=== PATIENT | male | born 1955 | race Caucasian/White ===

== ENCOUNTER 2021-03-06 14:03 | Outpatient (CLI) | payer MEDICARE, SELFPAY ==
--- NOTE | ~2021-03-06 | XR_ITS ---
EXAMINATION: XR knee LT 3V DATE: 03/06/2021 14:47 INDICATION: Left knee pain. TECHNIQUE: 3 views of left knee were obtained. COMPARISON: None. FINDINGS: Bone alignment is normal. No fracture. There is mild osteoarthritis of patellofemoral and m edial compartments characterized by tiny marginal osteophytes. No joint space narrowing. There is cho ndrocalcinosis of medial meniscus. There is a large knee joint effusion. IMPRESSION: 1. Mild left knee osteoarthritis. 2. Large left knee joint effusion. Reviewed, dictated and finalized at location A.
== END 2021-03-06 14:04 | disposition home or self-care (01) ==
PROVIDERS: PCP Internal Medicine; Visit Provider Nurse Practitioner Family
DX: M25.562 Pain in left knee (principal); M17.12 Unilateral primary osteoarthritis, left knee; M25.462 Effusion, left knee
CPT/HCPCS: 73562

== ENCOUNTER 2021-03-15 07:03 | Outpatient (CLI) | payer MEDICARE, SELFPAY ==
--- NOTE | ~2021-03-15 | MR_ITS ---
EXAMINATION: MR knee LT wo con DATE: 03/15/2021 08:42 INDICATION: Left knee pain 2 weeks post fall with hyperflexion injury. TECHNIQUE: Magnetic resonance imaging (MRI) of the left knee was performed without intravenous contra st. Sequences included coronal PD-weighted FSE, coronal PD-weighted FS FSE, sagittal T2-weighted FSE , sagittal PD-weighted FS FSE and axial PD weighted fat saturated FSE. COMPARISON: None. FINDINGS: Medial compartment: Likely complex medial meniscal tear extending from the body into the posterior horn. Partial-thicknes s chondral ulceration involving less than 50% the cartilage thickness at the lateral margin of the la teral tibial plateau and anterior weightbearing medial femoral condyle. Lateral compartment: Lateral meniscus is normal. Tarsal thickness chondral fissuring along the posterior margin of the lat eral tibial plateau. Patellofemoral compartment: Deep chondral fissuring along the medial margin of the medial patellar facet as well as at the cephal ad aspect of the more lateral side of the medial patellar facet, the latter with tiny focus of underl xin subarticular edema. Shallow chondral fissuring at the lateral tibial plateau. Partial thickness chondral ulceration and deep fissuring with underlying cortical irregularity and tiny subarticular cy st at the inferior aspect of the medial trochlea. Ligaments and tendons: Complete tear of the anterior cruciate ligament. Posterior cruciate ligament is normal. Mild edema al jesús the deep and superficial margin of the otherwise normal-appearing proximal medial collateral liga ment which could be due to low-grade sprain or reactive edema related to the adjacent meniscal tear. Mild increased thickening and increased signal of less than fluid intensity at the femoral attachment of the fibular collateral ligament with mild surrounding edema consistent with low to moderate grade sprain. Mild patellar tendinopathy with large enthesopathic ossicle and associated enthesophyte at t he anterior tibial tuberosity insertion of the distal tendon. Tiny enthesophytes at the patellar inse rtion of the distal quadriceps tendon where there is only minimal tendinopathy. Mild semimembranosus tendinopathy. The remaining visualized medial and lateral hamstring tendons as well as the iliotibial band are normal. Fluid: Moderate-sized left knee joint effusion. Bandlike filling defect extending across the suprapatellar p ouch caudal to a suprapatellar plical band which could represent a small amount of residual clot rela alfonzo to prior post rheumatic hemarthrosis. No loose osteochondral bodies identified. Osseous/other: Prominent marrow edema surrounding a linear subarticular impaction fracture line which extends human capital analyst iorly from the lateral sulcus of the lateral aspect of the lateral femoral condyle into the lateral a spect of the anterior weightbearing lateral femoral condyle. Additional marrow edema surrounding a co rresponding subarticular impaction fracture line along the posterior rim of the lateral tibial platea u. Otherwise normal marrow signal. No pathologic marrow replacing process. IMPRESSION: 1. Moderate-sized left knee joint effusion and subarticular impaction fractures at the lateral margin of the lateral femoral condyle and the posterior rim of the lateral tibial plateau consistent with a n anterior tibial subluxation injury with associated complete tear of the anterior cruciate ligament. 2. Low to moderate grade sprain of the proximal fibular collateral ligament and possible low-grade sp rain of the medial collateral ligament. 3. Complex tear of the body and posterior horn of the medial meniscus. Reviewed, dictated and finalized at location A. IMPRESSION: 1. Moderate-sized left kne
== END 2021-03-15 07:04 | disposition home or self-care (01) ==
LOC: CHSIMG 07:05
PROVIDERS: PCP Internal Medicine; Visit Provider Internal Medicine
DX: M25.562 Pain in left knee (principal)
CPT/HCPCS: 73721

== ENCOUNTER 2021-09-07 00:27 | Day surgery (SDC) | payer MEDICARE, SELFPAY ==
[2021-08-24 14:52] VITALS: BMI 29.6
--- NOTE | 2021-09-07 06:35 | WPDANESEPPF ---
Anes - Initial Pre Proc Eval Procedure: Operation Date: 09/07/21 09:30 Proposed Procedures p Screening Colonoscopy - Ross An DO Date/Time: 09/07/21 06:35 Surgeon: Ross An DO Pre Op Diagnosis: neoplasm screening Patient Data Age: 66 Gender: M Height: 1.8 m Weight: 96.3 kg Allergies Allergy/AdvReac Type Severity Reaction Status Date / Time No Known Allergies Allergy Verified 09/07/21 08:29 Home Medications Medication Instructions Recorded Confirmed Type No Home Medications 08/24/21 09/07/21 History Patient hx anesthesia problems: none Family hx anesthesia problems: none Results Review: All pre-operative results and documents have been reviewed as part of the pre-operative evaluation. PMFSH Social History Social History Living arrangements: with family Anes - Eval Final PreProcedure Day of Procedure 09/07/21 06:35 Patient weight: overweight Heart: regular rate and rhythm Lungs: clear to auscultation and normal air movement Airway: Mallampati scale class II Neurological: alert and oriented Last oral intake: >/= 8 hours ASA classification: I Emergent: no Anesthetic plan: proceed Anesthesia type and monitoring: general GIVS and standard monitoring Results Review: All pre-operative results and documents have been reviewed as part of the pre-operative evaluation. Informed Consent: The patient's anesthetic plan and its attendant risks and benefits were discussed with the patient/family/POA. Questions were solicited and answers provided to the satisfaction of the patient/family/POA.
[2021-09-07 08:20] VITALS: BP 134/87; PULSE 70; RESP 18; TEMP 36.1; O2SAT 97; BMI 28.4
[2021-09-07] MEDS: LACTATED RINGERS 1,000 ML 150 ML IV CONT (08:38)
--- NOTE | 2021-09-07 09:32 | PM.IMHP ---
H&P: HPI History of Present Illness Date/Time: 09/07/21 09:32 Chief Complaint: screening for colorectal cancer Narrative: this is a 66-year-old man who presents for his 1st colonoscopy. He denies any hematochezia or melena. He denies any family history of colon cancer. Review of Systems Review of Systems: All systems reviewed & are unremarkable except as noted in HPI and below Constitutional: Constitutional: Denies chills, Denies fever(s), Denies headache(s) and Denies weight loss Eyes: Eyes: Denies change in vision ENT: Denies dizziness, Denies headache(s), Denies neck mass and Denies throat swelling Cardiovascular: Cardiovascular: Denies chest pain, Denies lightheadedness and Denies dyspnea Respiratory: Respiratory: Denies cough, Denies dyspnea and Denies wheezing Gastrointestinal: Gastrointestinal: Denies abdominal pain, Denies change in bowel habits, Denies nausea and Denies vomiting Genitourinary: Genitourinary: Denies hematuria and Denies dysuria Musculoskeletal: Musculoskeletal: Reports as per HPI Integumentary/Breasts: Skin/Breast: Reports as per HPI Neurologic: Denies dizziness and Denies headache(s) Allergic/Immunologic: Allergic/Immunologic: Denies throat swelling and Denies wheezing PMF Social History Social History Living arrangements: with family Meds Home Medications and Allergies Home Medications Medication Instructions Recorded Confirmed Type No Home Medications 08/24/21 09/07/21 History Allergies Allergy/AdvReac Type Severity Reaction Status Date / Time No Known Allergies Allergy Verified 09/07/21 08:29 Vital Signs Vital Signs - 24 hr 09/07/21 08:20 Temperature 36.1 C L Pulse Rate 70 Respiratory Rate 18 Blood Pressure 134/87 Pulse Oximetry 97 Exam Const: General: no acute distress and alert Orientation/consciousness: patient oriented x3 HENMT: Head: normocephalic and atraumatic Ears: hearing grossly normal bilaterally General nose exam: Normal nares present Mouth: Yes Normal oral and palatal mucosa present Eyes: Periorbital: periorbital findings normal Sclera: sclerae normal EOM: EOMs intact bilaterally Neck: Neck: normal visual inspection, no lymphadenopathy and trachea midline Chest: Chest palpation & inspection: normal inspection of the chest Resp: Effort & Inspection: normal respiratory effort Auscultation: clear to auscultation bilaterally Cardio: Jugular venous distension: no JVD Rate: regular rate Rhythm: regular rhythm Heart sounds: S1 normal heart sound present and S2 normal heart sound present Peripheral pulses: Peripheral pulses 2+ throughout GI: Inspection: normal to inspection GI Palp: Yes Soft to palpation, No Tenderness to palpation present (GI), No Guarding due to palpation present (GI) and No Rebound tenderness present Percussion: Yes normal to percussion Auscultation: normal bowel sounds : General: Yes no CVA tenderness Back/Spine/Pelvis: Back: no CVA tenderness Neuro: General: patient oriented x3, no focal motor deficits and CN's II-XI intact bilaterally Cognition (Neuro): normal cognition Speech: normal speech Motor exam (neuro): 5/5 motor strength present throughout Extrem: General: capillary refill normal and no clubbing, cyanosis or edema Assessment and Plan Assessment and plan (1) Screening for colorectal cancer: Code(s): Z12.11 - Encounter for screening for malignant neoplasm of colon; Z12.12 - Encounter for screening for malignant neoplasm of rectum Status: Acute Assessment and Plan: I have recommended colonoscopy. I have discussed the procedure, risks, benefits, and alternatives with the patient. All questions answered.
[2021-09-07 10:12] VITALS: BP 98/65; PULSE 79; RESP 20; O2SAT 96
[2021-09-07 10:22] VITALS: BP 99/69; PULSE 72; RESP 20; O2SAT 95
[2021-09-07 10:32] VITALS: BP 116/79; PULSE 74; RESP 20; O2SAT 95
== END 2021-09-07 11:00 | disposition home or self-care (01) ==
PROVIDERS: PCP Internal Medicine; Visit Provider Surgery
PROC: 0DJD8ZZ Inspection of Lower Intestinal Tract, Via Natural or Artificial Opening Endoscopic (ICD-10-PCS; CPT 45378; principal; 2021-09-07 09:30)
DX: Z12.11 Encounter for screening for malignant neoplasm of colon (principal); D12.2 Benign neoplasm of ascending colon; D12.3 Benign neoplasm of transverse colon
CPT/HCPCS: 45385; 88305; J2001; J2704; J7120

== ENCOUNTER 2024-01-21 14:56 | Outpatient (CLI) | payer MEDICARE, SELFPAY ==
--- NOTE | ~2024-01-21 | XR_ITS ---
3 VIEWS LUMBAR SPINE Ordering provider: Mignon Bryson MD History: . 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 Comparison: None. FINDINGS: VERTEBRAL BODIES:Squaring of the vertebrae with syndesmophytes is noted. No visible fracture or subl uxation. DISK SPACES: Narrowing of all the disc spaces except L1-L2 is noted. Narrowing of the lower thoracic area disc spaces also noted. Multilevel facet joint disease. SOFT TISSUES: Normal. Fusion of the sacroiliac joints is noted. Fusion of the left transverse process of L5 with the left i liac bone is also seen. IMPRESSION: No acute osseous abnormality lumbar spine. Findings are highly suggestive of ankylosing spondylitis. Clinical correlation advised. Reviewed, dictated and finalized at location A.
--- NOTE | ~2024-01-21 | XR_ITS ---
XR sacroiliac joints min 3V Ordering provider: Mignon Bryson MD History: . 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 Comparison: None. FINDINGS: BONES: No acute fracture or dislocation. JOINTS: Fusion is seen bilaterally in the sacroiliac joints. Bilateral hip osteoarthritic changes. De generative spine. Fusion between the left transverse process of L5 and the left iliac bone is also no alfonzo. SOFT TISSUES: Unremarkable. IMPRESSION: NO ACUTE OSSEOUS ABNORMALITY FUSION OF THE SACROILIAC JOINTS. Findings are highly suggestive of ankylosing spondylitis. Clinical c orrelation advised. Reviewed, dictated and finalized at location A. IMPRESSION: NO ACUTE OSSEOUS ABNORMALITY FUSION OF THE SACROILIAC JOINTS. Findings are highly suggestive of ankylosing s pondylitis. Clinical correlation advised.
== END 2024-01-21 14:57 | disposition home or self-care (01) ==
LOC: CHSIMG 14:59
PROVIDERS: PCP Internal Medicine; Visit Provider Internal Medicine
DX: M54.50 Low back pain, unspecified (principal)
CPT/HCPCS: 72100; 72202

== ENCOUNTER 2024-03-09 10:33 | Outpatient (CLI) | payer MEDICARE, SELFPAY ==
--- NOTE | ~2024-03-09 | XR_ITS ---
3 VIEWS THORACIC SPINE Ordering provider: Mignon Bryson MD History: . ankylosing/spondylitis,RT>LT SIDE,FALL FLAT BACK [id number] . Comparison: None. FINDINGS: VERTEBRAL BODIES: Normal height and alignment. No visible fracture or subluxation. Degenerative zaldivar es. DISK SPACES: Multilevel degenerative disc disease. SOFT TISSUES: Normal. IMPRESSION: No acute osseous abnormality of the thoracic spine. Reviewed, dictated and finalized at location A.
--- NOTE | ~2024-03-09 | XR_ITS ---
XR hip BI wo pelvis Ordering provider: Mignon Bryson MD History: . RT >LT SIDE PAIN . Comparison: January 21, 2024 FINDINGS: BONES: No acute fracture or dislocation. HIP JOINT SPACES: Mild osteoarthritic changes. SACROILIAC JOINT SPACES/LUMBAR SPINE: The sacroiliac joint spaces are narrowed with bilateral sacroil iitis.. Mild degenerative changes of the visualized lower lumbar spine. PUBIC SYMPHYSIS: Normal. SOFT TISSUES: Normal. IMPRESSION: No acute osseous abnormality of the bilateral hips and pelvis. Reviewed, dictated and finalized at location A.
--- NOTE | ~2024-03-09 | XR_ITS ---
XR_CERV2-3V_CR Ordering provider: Mignon Bryson MD History: . ankylosing/spondylitis,NKI,RT>LT PAIN,FALL FLAT BACK X1YR AG . Comparison: None. FINDINGS: VERTEBRAL BODIES: Normal height and alignment. No visible fracture or subluxation. The dens is intact . DISK SPACES: Narrowing of the disc C4-C5 and C5-C6. Multilevel uncovertebral joint osteoarthritic renato nges. PARASPINOUS SOFT TISSUES: No prevertebral soft tissue swelling. IMPRESSION: No acute osseous abnormality cervical spine. Multilevel degenerative disc disease. Reviewed, dictated and finalized at location A.
== END 2024-03-09 10:34 | disposition home or self-care (01) ==
PROVIDERS: PCP Internal Medicine; Visit Provider Internal Medicine
DX: M45.9 Ankylosing spondylitis of unspecified sites in spine (principal); M50.30 Other cervical disc degeneration, unspecified cervical region
CPT/HCPCS: 72040; 72072; 73521

== ENCOUNTER 2024-04-06 09:23 | Outpatient (CLI) | payer MEDICARE, SELFPAY ==
--- NOTE | ~2024-04-06 | CT_ITS ---
CT abdomen pelvis w con Ordering provider: Mignon Bryson MD History: 68 years Male with . ACUTE RLQ ABDOMINAL PAIN X1WK . Comparison: None. Technique: CT abdomen and pelvis with IV and without oral contrast. Automated exposure control and it erative reconstruction technique were employed. The dose-length product was 761.27 mGy-cm. 100 mL Omn ipaque 350 was given IV. Findings: VISUALIZED LOWER CHEST: Dependent atelectatic changes. UPPER ABDOMINAL ORGANS: Liver: Normal Gallbladder: Normal. Spleen: Benign calcifications. Stomach/duodenum: Normal Pancreas: Normal. Adrenals: Left adrenal mass is seen measuring 3.4x 3.3 cm. Fat containing areas are seen which may in dicate adenoma versus myelolipoma. Clinical correlation and follow-up advised with MRI or CT dynamic study. Kidneys: Right renal cyst in the lower pole measuring 3.3 cm. PELVIC ORGANS: Urinary bladder is underfilled with slightly thickened wall. BOWEL AND MESENTERY: Colon: No evidence of diverticulitis. Normal appendix. Small Bowel: Normal. No obstruction. Peritoneum/mesentery: No free air or free fluid. No mesenteric lymphadenopathy. RETROPERITONEUM: Mild atheromatous disease of the abdominal aorta. No retroperitoneal lymphadenopat hy. MUSCULOSKELETAL: Superficial soft tissues: Bilateral small fat containing inguinal hernias. Otherwise, The superficial soft tissues are normal. Bones: Age appropriate degenerative changes of the spine. Bilateral sacroiliacs. Bilateral hip osteoa rthritic changes. IMPRESSION: 1. No evidence of appendicitis, diverticulitis or intestinal obstruction. 2. Left adrenal mass. Further evaluation advised. 3. Right renal cyst. 4. Bilateral fat containing inguinal hernias. Reviewed, dictated and finalized at location A.
[2024-04-06 09:42] LABS: Add Urine Microscopic? NO; Appearance Urine Clear (Clear); Basophils Absolute Auto 0.02 K/mm3 (0.00-0.10); Basophils Percent Auto 0.3 % (0.0-1.0); Bilirubin Urine Negative (Negative); Blood Urine Negative (Negative); Color Urine Yellow (Yellow); Eosinophils Absolute Auto 0.08 K/mm3 (0.02-0.50); Eosinophils Percent Auto 1.1 % (1.0-6.0); Glucose Urine UA Negative (Negative); Hematocrit 43.2 % (37.0-46.0); Hemoglobin 14.6 g/dL (12.4-15.3); Immature Granulocyte Absolute 0.03 K/mm3 (0.00-0.00); Immature Granulocyte Percent A 0.4 % (0.0-0.0); Ketones Urine Negative (Negative); Leukocyte Esterase Ur Negative LEU/UL (Negative); Lymphocytes Percent Auto 12.7 % (18.0-42.0); Mean Corpuscular HGB Conc 33.8 g/dL (32-36); Mean Corpuscular Hemoglobin 31.8 pg (27.0-31.0); Mean Corpuscular Volume 94.1 fL (78.0-102.0); Mean Platelet Volume 10.1 fl (8.7-11.0); Monocytes Percent Auto 8.5 % (2.0-11.0); Neutrophils Absolute Auto 5.45 K/mm3 (1.70-7.20); Nitrate Urine Negative (Negative); Platelet Count Result 211 K/mm3 (150-420); Protein Urine Negative (Negative); Red Blood Count 4.59 M/mm3 (4.70-6.10); Urobilinogen Urine 0.2 mg/dL (0.2-1.0); White Blood Count 7.1 K/mm3 (4.8-10.8); pH Urine 6.5 (5.0-8.0)
[2024-04-06 09:58] LABS: Alanine Aminotransferase 21 U/L (16-63); Albumin Level 3.6 g/dL (3.4-5.0); Alkaline Phosphatase 118 U/L (46-116); Anion Gap 7 mmol/L (4-12); Aspartate Amino Transferase 11 U/L (15-37); Bilirubin,Total 0.7 mg/dL (0.00-1.00); Blood Urea Nitrogen 18 mg/dL (7-18); Carbon Dioxide 28 mmol/L (21-32); Chloride 105 mmol/L (98-108); Estimated Glomerular Filt Rate > 60; Glucose 105 mg/dL (70-99); Osmolality Calculated 291 mOsm/kg (285-295); Potassium 4.1 mmol/L (3.5-5.1); Sodium 140 mmol/L (136-145); Total Protein 6.9 g/dL (6.4-8.2)
== END 2024-04-06 09:24 | disposition home or self-care (01) ==
PROVIDERS: PCP Internal Medicine; Visit Provider Internal Medicine
DX: R10.9 Unspecified abdominal pain (principal); E27.9 Disorder of adrenal gland, unspecified; N28.1 Cyst of kidney, acquired; K40.90 Unilateral inguinal hernia, without obstruction or gangrene, not specified as recurrent
CPT/HCPCS: 36415; 74177; 80053; 81003; 85025; Q9967

== ENCOUNTER 2024-04-30 08:13 | Outpatient (CLI) | payer MEDICARE, SELFPAY ==
--- NOTE | ~2024-04-30 | MR_ITS ---
EXAMINATION: MR abdomen wo/w con DATE: 04/30/2024 09:06 INDICATION: Malignant neoplasm of unspecified adrenal gland TECHNIQUE: Magnetic resonance imaging (MRI) of the abdomen was performed without and with 20 mL Multi osmani intravenous contrast. Sequences included coronal and axial T2-weighted SS-FSE, axial FS 2D-FIES TA, coronal and axial dual-echo T1-weighted FSPGR, axial T1-weighted LAVA, and axial STIR FSE. Postco ntrast axial T1-weighted LAVA images were obtained in a time course. Postcontrast coronal T1-weighted LAVA images were obtained. COMPARISON: CT dated 04/06/2024 FINDINGS: Heart size is normal. No pericardial or pleural effusion. Liver, gallbladder, spleen, pancreas and ri ght kidney are normal. 3.5 x 2.7 cm left adrenal mass with heterogeneous increased T2 signal and with signal loss on opposed phase images consistent with mixed fat and fluid. There are couple foci of lo w signal intensity on the T1-weighted fat saturation images and with macroscopic fat attenuation on p rior CT. Given the combined CT and MR findings differential would include myelolipoma and adenoma. Th ere are bilateral T2 hyperintense nonenhancing renal cysts the largest on the right measuring 3.9 cm. Visualized portions of bowels are unremarkable with no obstruction. No pathologically enlarged abdom inal or upper pelvic lymphadenopathy. Partial ankylosis at the bilateral sacroiliac joints. L2 fat sa turating and T2 hyperintense hemangioma. Moderate spondylosis. IMPRESSION: 1. 3.5 cm left adrenal mass with diffuse signal loss on opposed phase imaging consistent with presenc e of fat with a couple foci of what appears more likely macroscopic fat. Differential would include a drenal adenoma and myelolipoma. Reviewed, dictated and finalized at location B. 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 3.5 cm left adrenal mass with diffuse signal loss on opposed phase imaging c onsistent with presence of fat with a couple foci of what appears more likely m acroscopic fat. Differential would include adrenal adenoma and myelolipoma.
== END 2024-04-30 08:14 | disposition home or self-care (01) ==
LOC: CHSIMG 08:17
PROVIDERS: PCP Internal Medicine; Visit Provider Internal Medicine
DX: C74.90 Malignant neoplasm of unspecified part of unspecified adrenal gland (principal)
CPT/HCPCS: 74183; A9577

== ENCOUNTER 2024-06-16 02:53 | Day surgery (SDC) | payer MEDICARE, SELFPAY ==
[2024-06-01 12:40] VITALS: BMI 29.2
--- NOTE | 2024-06-01 12:50 | PC.NURSE ---
Report to the Outpatient Waiting Room, entrance under the green pavilion located off [facility], at time ___09:30am____ on date _06/16/24 . Planned Procedure Time: _11:30am .? Time changes happen often and if your time is changed the preop area will call you the afternoon before. - You and your visitor will be asked to self-screen and do not enter if you have any COVID symptoms. Please call surgeon if you need to reschedule. - A mask is optional within the hospital at this time. Patients may have clear liquids (water, carbonated beverages, clear teas, apple juice) until 3 hours prior to surgery with a maximum of 20 ounces. - No food from midnight until time of surgery and no smoking. This includes no chewing gum, candy or mints. (0830am) Take only the following medications with a SIP of water on the morning of surgery: _None DO NOT STOP ANY OF YOUR OTHER PRESCRIPTION MEDICATIONS PRIOR TO SURGERY EXCEPT THE FOLLOWING Medications to discontinue per physician None Date to take last dose____None Please no make-up, nail maltese, hairspray, perfume, deodorant, or body powder the day of surgery.? No jewelry (including any body piercings) or valuables the day of surgery, leave them at home.? Please take a shower or bath the night before, or the morning of, surgery with an antibacterial soap.? Wear comfortable, loose fitting clothing.? - Jewelry must be removed prior to entering the operating room.? Rings and piercings that are not removed may be cut off. - The hospital will not accept responsibility for valuables.? - Please leave all valuables, including medications, at home the day of surgery. If you are going home after surgery, a licensed lifter driver must drive you home.? - NO public transportation without another adult if you receive anesthesia. - We recommend that an adult stay with you for 24 hours following discharge. - We also recommend that you do not drive, make important decision, drink alcoholic beverages, or take any drugs that were not prescribed by your health care provider for at least 24 hours after your discharge time. Follow any additional instructions given to you from your surgeon. Telephone instructions given to __Patient and asked if any additional questions and then verbalized understanding. Patient advised to call surgeon office or pre surgery nurse liaison [phone] if any additional questions.
[2024-06-16] VITALS (9 sets, daily range): BP systolic 122–159; BP diastolic 64–77; PULSE 57–85; RESP 14–17; TEMP 36.6–36.9; O2SAT 92–97
--- NOTE | 2024-06-16 07:45 | WPDANESEPPF ---
Anes - Initial Pre Proc Eval Procedure: Operation Date: 06/16/24 11:30 Proposed Procedures p Laparoscopic Bilateral Inguinal Hernia Repair with Mesh, Davinci Assisted - Ross An DO Date/Time: 06/16/24 07:45 Surgeon: Ross An DO Pre Op Diagnosis: Bilateral Inguinal Hernia Patient Data Age: 69 Gender: M Height: 1.8 m Weight: 94.9 kg Allergies Allergy/AdvReac Type Severity Reaction Status Date / Time No Known Allergies Allergy Verified 06/01/24 12:39 Home Medications ?Medication ?Instructions ?Recorded ?Confirmed ?Type No Home Medications 08/24/21 06/01/24 History Patient hx anesthesia problems: none Family hx anesthesia problems: none Results Review: All pre-operative results and documents have been reviewed as part of the pre-operative evaluation. [facility] Past Medical History Medical History (Updated 06/16/24 @ 07:46 by Saqib Cartwright DO) Adrenal mass Social History Social History (Updated 05/25/24 @ 13:16 by Lisa Wheeler MA) Smoking status: Never smoker Alcohol intake: never Substance use: never Current Housing: Decline to Answer Concerned About Future Housing: Decline to Answer Difficulty Paying Gas/Electric Bills: Decline to Answer Difficulty Paying for Meds: Decline to Answer Currently Unemployed: Decline to Answer Education: Decline to Answer Difficulty w/ Childcare or Family Care: Decline to Answer Living arrangements: with family Anes - Eval Final PreProcedure Day of Procedure 06/16/24 07:45 Patient weight: overweight Heart: regular rate and rhythm Lungs: clear to auscultation Airway: Mallampati scale class II Neurological: alert and oriented Last oral intake: >/= 8 hours ASA classification: II Emergent: no Anesthetic plan: proceed Anesthesia type and monitoring: general ETT and standard monitoring Results Review: All pre-operative results and documents have been reviewed as part of the pre-operative evaluation. Informed Consent: The patient's anesthetic plan and its attendant risks and benefits were discussed with the patient/family/POA. Questions were solicited and answers provided to the satisfaction of the patient/family/POA.
[2024-06-16] MEDS: LACTATED RINGERS 1,000 ML 30 ML IV CONT ×3 (10:15→16:00)
[2024-06-16] MEDS: ACETAMINOPHEN 500 MG TABLET 1000 MG PO (10:16)
[2024-06-16] MEDS: KETOROLAC 15 MG/ML VIAL (*BKC) IV PUSH (10:16)
--- NOTE | 2024-06-16 12:20 | WPDHPUPDATE1 ---
History and Physical Update Update Date/Time: 06/16/24 12:20 History and Physical has been reviewed, including an updated exam of the patient. There are NO changes in the patient's condition. Risks, benefits, and alternatives have been discussed and questions answered. Patient agrees to proceed with procedure.
[2024-06-16] MEDS: ceFAZolin 2 GM/D5W 50 ML 2 GM/50 ML BAG IVPB (12:50)
[2024-06-16] MEDS: BUPIVACAINE/EPINEPHRINE 0.5% 30 ML VIAL INFILTRATE (13:17)
--- NOTE | 2024-06-16 14:28 | P.OP_ITS ---
Procedure Note - Detailed Date of Procedure 06/16/24 Pre-op Diagnosis Bilateral Inguinal Hernia Post-op Diagnosis Same (Bilateral indirect inguinal hernias) Procedure Performed Laparoscopic bilateral inguinal hernia repair with mesh, da Wang assisted Surgeon Ross An DO Anesthesia General and Local (0.5% bupivacaine with epinephrine) Indications This is a 69-year-old man who presented with bilateral inguinal hernias. He was initially reporting some right groin pain that started about 2 months ago. He underwent a CT of his abdomen and pelvis which showed evidence of bilateral fat containing inguinal hernias. On exam the right side was slightly larger than the left. Discussions were made with the patient about treatment options and decision was made to proceed with robotic assisted laparoscopic bilateral inguinal hernia repair with mesh. Findings Robotic assisted laparoscopic bilateral inguinal hernia repair with mesh was performed. The patient was found to have a medium-sized indirect right inguinal hernia and a small indirect left inguinal hernia. A robotic transabdominal preperitoneal approach was utilized for repair. Large 3DMax mid mesh was placed overlying each myopectineal orifice. No specimens were obtained for pathology. Description of Procedure Procedure as well as risks, benefits, and alternatives were discussed with the patient. Written consent was obtained and placed in chart prior to procedure. Patient was brought back to surgical suite. He was placed supine on operating table. Time-out was done to confirm patient and procedure. He was then intubated by Anesthesia Department. His abdomen was prepped and draped in sterile fashion using chlorhexidine prep. 0.5% bupivacaine with epinephrine was infiltrated at each location for incision. An 8 mm incision was made in the left lateral abdomen, and a 5 mm Optiview trocar was advanced through the abdominal layers under direct visualization. Once inside the abdominal cavity, carbon dioxide insufflation was used to create a pneumoperitoneum. A camera was inserted and the abdominal cavity was inspected. The patient was placed in slight Trendelenburg position. An 8 millimeter incision was made on the right lateral abdomen and an 8 millimeter trocar was inserted under direct visualization. Another 8 millimeter incision was made just superior to the umbilicus and an 8 millimeter trocar was inserted under direct visualization. The 5 mm port was then removed and this was replaced with another 8 mm robotic port. The robotic arms were brought up to the patient's bedside and secured to the ports. The camera and instruments were inserted. I then moved over to the robotic console and took control of the camera and instruments. After careful inspection of the abdominal cavity, I began scoring the peritoneum along the right lower quadrant using scissors with electrocautery. The preperitoneal plane was entered and this was carefully dissected caudally along the inferior epigastric vessels. Careful dissection with scissors with electrocautery and blunt dissection was used to continue this dissection. I dissected far enough laterally to allow for mesh placement, and also dissected medially to identify the pubic arch and Jhon's ligament. The hernia sac was identified and carefully dissected posteriorly. The cord contents were also identified and the peritoneum was carefully dissected far enough posteriorly to allow for mesh placement. Once an adequate pocket was created, I then placed the mesh within the preperitoneal pocket and carefully unfolded it. The mesh was centered on the hernia defect with adequate overlap circumferentially. The inferior edge of the mesh was inspected to ensure that it was far enough away from the peritoneal edge. The mesh appeared in proper position overlying the entire myopectineal orifice. The mesh was secured using 3-0 Vicryl simple interrupted sutures in Jhon's ligament, the superior medial edge, and superior lateral edge of the mesh. The peritoneum was then closed over the mesh using a 3-0 V-lock running absorbable suture. I then began scoring the peritoneum along the left lower quadrant using scissors with electrocautery. The preperitoneal plane was entered and this was carefully dissected caudally along the inferior epigastric vessels. Careful dissection with scissors with electrocautery and blunt dissection was used to continue this dissection. I dissected far enough laterally to allow for mesh placement, and also dissected medially to identify the pubic arch and Jhon's ligament. The hernia sac was identified and carefully dissected posteriorly. The cord contents were also identified and the peritoneum was carefully dissected far enough posteriorly to allow for mesh placement. Once an adequate pocket was created, I then placed the mesh within the preperitoneal pocket and carefully unfolded it. The mesh was centered on the hernia defect with adequate overlap circumferentially. The inferior edge of the mesh was inspected to ensure that it was far enough away from the peritoneal edge. The mesh appeared in proper position overlying the entire myopectineal orifice. The mesh was secured using 3-0 Vicryl simple interrupted sutures in Jhon's ligament, the superior medial edge, and superior lateral edge of the mesh. The peritoneum was then closed over the mesh using a 3-0 V-lock running absorbable suture. The robotic instruments were removed. The robotic arms were disengaged from the ports and moved away from the bedside. The patient was flattened out in bed, the ports were removed under direct visualization, and the pneumoperitoneum was released. The skin of the incisions was approximated using 4-0 Monocryl subcuticular suture, and Exofin glue was applied on top. The drew ent was awakened from anesthesia, extubated, and transferred to recovery. Implants Large right and left 3DMax mid mesh Estimated Blood Loss 10 Complications No immediate complications Condition Stable Disposition Same day [facility] Billing Surgery - Charge Forward: Surgery Billing
[2024-06-16] MEDS: ONDANSETRON INJ 4 MG/2 ML VIAL IV PUSH (16:42)
== END 2024-06-16 17:07 | disposition home or self-care (01) ==
PROVIDERS: PCP Internal Medicine; Visit Provider Surgery
PROC: 8E0Y4CZ Robotic Assisted Procedure of Lower Extremity, Percutaneous Endoscopic Approach (ICD-10-PCS; CPT 49650; principal; 2024-06-16 11:30)
DX: K40.20 Bilateral inguinal hernia, without obstruction or gangrene, not specified as recurrent (principal)
CPT/HCPCS: 49650; S2900; 36415; 86850; 86900; 86901; A9270; C1781; J0330; J0690; J1100; J1171; J1885; J2003; J2405; J2704; J3010; J7030; J7120

== ENCOUNTER 2024-10-19 01:49 | Day surgery (SDC) | payer MEDICARE, SELFPAY ==
[2024-10-07 08:46] VITALS: BMI 28.6
--- OUTSIDE RECORDS SUMMARY | 2024-10-19 01:55 | XMS_ITS | Data Portability ---
Author Organization [facility], [address] [facility] ([place]) Address [address] [place] [address] Care Team Providers Care Manager Software Development Name Role Phone SEN RAMIREZ Primary Care Provider Assessment Encounter Date Assessment Date Assessment LastModified by Organization Details LastModified Time 04/16/2024 04/16/2024 IMPRESSION: 1. Clinical findings most consistent with DISH (diffuse idiopathic skeletal hyperostosis), doubt underlying ankylosing spondylitis. 2. Osteoarthritis. PLAN: 1. Referral to physical therapy for the back and for core strengthening twice weekly for 6 weeks. 2. I recommend the patient avoid oral NSAIDs. These are often a mainstay of the treatment of DISH, but in his case, based on his age, would prefer to avoid the potential for underlying side effects such as elevated blood pressure, renal impairment, GI bleeding and cardiovascular and cerebrovascular events. Furthermore, he is not having significant symptoms that would warrant even taking this risk with NSAIDs, definitely not on a daily basis. I instructed him today to simply avoid NSAIDs altogether. 3. May use acetaminophen up to 1 g p.o. t.i.d. p.r.n. for analgesic relief. 4. I will see him back in rheumatology clinic as needed. Lengthy discussion with the patient and his today regarding my clinical impressions and overall recommendations. I personally spent a total of 52 minutes on the patient on this date of service including both urqk-cr-nxax and qhc-ikei-ya-face time excluding any separately reportable services. [email or web address] Not available 04/16/2024 20:38:02 Plan of Treatment Reminders Order Date Submit Date Provider Last Modified By Organization Details Last Modified Time Details Appointments New Patient Visit 20.NEW 2024 01:40P Mena Kenney Ferreira Not available Not available Not available Lab None recorded . Referral None recorded . Procedures None recorded . Surgeries None recorded . Imaging None recorded . Medication Orders None recorded . Patient TargetsNo targets recorded. Patient InstructionsNo instructions recorded. Reason for Referral None Reported. Results Created Date Observation Date Name Description Value Unit Range Abnormal Flag Note LastModifiedBy Organization Detail LastModifiedTime 05/05/20 24 03/09/2024 XR, thora cic spine , 3 view No observ ation record ed. [facility] Not Available 2023 16:24:15 05/05/20 24 03/09/2024 XR, hip, bilat eral No observ ation record ed. [facility] Not Available 2023 16:24:15 05/06/20 24 03/09/2024 XR, cervi chikis spine , 2 or 3 view No observ ation record ed. [facility] Not Available 2023 10:13:17 Result Notes None recorded. Problems Name Problem SNOMED Code Status Onset Date Resolution Date Notes Provider Name and Address Organization Details Recorded Time Problem of low back 373359552 Active 2023 Artis Adan [facility] 4 14:55:22 Diffuse idiopathic skeletal hyperostosi s of lumbar spine 5834014642771 02 Active 2023 London Naqvi MD [address] [place] [address], [phone], [facility] 4 17:05:51 Diffuse idiopathic skeletal hyperostosi s of lumbosacral spine 3975060912263 06 Active 2023 London Naqvi MD [address] [place] [address], [phone], [facility] 4 17:06:24 Generalized osteoarthri tis 938995146 Active 2023 London Naqvi MD [address] [place], [phone], [facility] 4 17:06:44 Degeneratio n of lumbar interverteb ral disc 16903504 Active 2023 London Naqvi MD [address] [place], [address] [place] [address] 4 17:07:19 Problem Notes None recorded. Procedures Surgical History None recorded. Imaging Results Imaging Date Name Status LastModified by Organiz ation Details LastModified Time 03/09/2024 XR, thoracic spine, 3 view completed [facility] Information not available 05/05/2024 16:24:15 03/09/2024 XR, hip, bilateral completed [facility] Information not available 05/05/2024 16:24:15 03/09/2024 XR, cervical spine, 2 or 3 view completed [facility] Information not available 2024 10:13:17 Procedure Notes None recorded. Medical Equipment None Reported. Medications Name Sig Start Date Stop Date Status Note LastModified by Organization Details LastModified Time fluconazole 100 mg tablet TAKE 1 TABLET BY MOUTH ONCE DAILY active Not Available Not Available No t Available nystatin 100,000 unit/gram topical cream APPLY TO THE AFFECTED AREA(S) 3 TIMES A DAY active Not Available Not Available No t Available Vitals Date Recorded Body height Body mass index (BMI) Body weight Heart rate Oxygen saturation Oxygen saturation in Arterial blood by Pulse oximetry Pain severity - 0-10 verbal numeric rating [Score] - Reported Systolic blood pressure Diastolic blood pressure Provider Name and Address Organization Details Last Updated DateTime 4 179.07 cm 29.1 kg/m2 95309.6 7 g 77 /min 95 % 95 % 0 142 mm[Hg] 72 mm[Hg] Karen Blunt [facility] 4 14:14:26 Social History None recorded. Functional Status None recorded. Mental Status None recorded. Family History Nothing Reported. Medical History No medical history recorded. Past Encounters Encounter ID Performer Location Encounter Start Date Encounter Closed Date Diagnosis/Indication Diagnosis SNOMED-CT Code Diagnosis ICD10 Code Diagnosis Note [id number] London Naqvi MD [address] [facility] ([place]) [address], [place] [address] 04/16/2024 13:52:29 04/16/2024 18:25:21 Diffuse idiopathic skeletal hyperostosis of lumbosacral spine 2018851246 78938 M48.17 Generalize d osteoarthritis 878266263 M15.9 Degenerati on of lumbar intervertebral disc 76794856 M51.369 Health Concerns Section Related Observation LastModified by Organization Detai ls LastModified Time None Recorded Concern Status LastModified by Organization Details LastModified Time None Recorded Advance Directives Directive None Recorded Payers Encounter Date Sequence Insurance Name Policy Number Policy Perez Covered Member ID Perez Member ID Guarantor Name 04/16/2024 1 [employer] (MEDICARE REPLACEMENT PPO) [id number] Donny Yael Gross [id number] Donny Gross Notes Date Note Type Note Provider Name and Address Organization Details Recorded Time 04/16/2024 text/html The patient is a 68-year-old white male, nonsmoker, with a history of degenerative disk and joint disease of the thoracolumbar and cervical spine, as well as osteoarthritis, who is seen today in consultation at the request of his primary care physician, Dr. Mignon Bryson, regarding rheumatologic evaluation of abnormal spine motion with abnormal lumbar spine and pelvis x-ray, rule out underlying ankylosing spondylitis. 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 He has noticed in recent months difficulties with certain ranges of motion with his back, especially bending backwards. He is able to bend forward and almost touch his toes. He demonstrates this today during the physical exam, please see below. The patient was in seeing his primary care physician for a general physical and mentioned his back concerns. This prompted a physical exam of his back and there was noted limitation of full extension range of motion. He underwent subsequent testing, including on January 21, 2024, x-rays of the pelvis, bilateral hips and thoracolumbar spine, as well as cervical spine. 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 There is also extensive bony spurring off the anterior portion of the vertebrae, as well as in the facet joints, but no clear evidence of fusion or bamboo spine changes. The anterior and posterior longitudinal ligaments appear normal. There is severe multilevel degenerative disk changes, questionable disk gas phenomenon at the L5-S1 level. The patient s SI joints are noted to be intact inferiorly where the synovium exists. The superior portions appear fused. No evidence of erosions. There are large traction spurs that are quite bulky noted off the tips of the anterior superior iliac spine, as well as edges of the trochanters in both hips. There are no fractures. No compression or loss of vertebral height. The cervical spine images show degenerative disk changes in multiple levels with cervical spondylosis. No fractures or listhesis. Hip x-rays show minimal degenerative changes, but no fractures. Bony trabeculae appear intact. Additional materials reviewed included serologic testing by Dr. Bryson from January 27, 2024, demonstrating negative HLAB27 screen, normal Westergren sed rate and C-reactive protein. As far as the patient s clinical symptoms, he has no significant back pain. His stiffness in the morning lasts 5-10 minutes. He denies any nocturnal awakenings with back pain or stiffness. He has had no lower extremity radicular symptoms. No Raynaud s symptoms, aphthous ulcers, inflammatory eye symptoms, dactylitis of the digits, enthesopathic symptoms such as plantar fasciitis or Achilles tendinitis or patellar tendinitis. He has had no sicca symptoms, unexplained fevers, weight loss, skin rash. No history of inflammatory bowel disease, melena or hematochezia, reflux symptoms, cough or pleurisy, chest pain or palpitations. No dysuria or gross hematuria, DVT or PE, cytopenia or seizure history. He states his energy level is normal. He keeps fully physically active and has no limitations from his back issues or neck issues. Family history is remarkable for osteoarthritis. There is no family history of connective tissue disease. I have reviewed the patient s past medical history and [employer] intake form.yolanda Naqvi MD [address] [place] [address], [phone], [facility] 04/21/2024 21:51:01
--- OUTSIDE RECORDS SUMMARY | 2024-10-19 01:55 | XMS_ITS | Clinical Summary ---
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 Gender Identity Not on file Sexual Orientation Not on file Last Filed Vital Signs Vital Sign Reading Time Taken Comments Blood Pressure 138/88 10/10/2017 8:07 AM CDT Pulse - - Temperature - - Respiratory Rate - - Oxygen Saturation - - Inhaled Oxygen Concentration - - Weight 94.8 kg (209 lb) 10/06/2021 2:29 PM CDT Height 181.6 cm (5' 11.5 ) 10/06/2021 2:29 PM CD T Body Mass Index 28.74 10/06/2021 2:29 PM CDT Plan of Treatment Health Maintenance Due Date Last Done Comments Colorectal Cancer Screening Colonoscopy (10 Years) 1955 Hepatitis C 1973 Annual Medicare Wellness Visit 2018 COVID-19 Vaccine ( - 2023-2 5 season) 2024 06/23/2021, 09/30/2020, 09/02/2020 RSV Immunization or 60+ Years (1 - 1-dose 75+ series) 2028 DTaP, Tdap and Td Vaccines ( 2 - Td or Tdap) 09/19/2028 09/19/2018 Zoster Vaccines Completed 04/30/2019, 02/05/2019, 10/07/2013 Pneumococcal Vaccine: 50+ Years Completed 11/24/2020, 09/19/2018 Meningococcal B Vaccine Aged Out No l onger eligible based on patient's age to complete this topic Meningococcal Vaccine Aged Out No david aren eligible based on patient's age to complete this topic RSV Immunizations Under 20 Months Aged Out No longer eligible b ased on patient's age to complete this topic Insurance AETNA AETNA Care Teams Drag Out Worker Relationship Specialty Start Date End Date Mignon Bryson MD [address] [place] [address] PCP - General INTERNAL MEDICINE 10/06/21
[2024-10-19 08:11] VITALS: BP 139/84; PULSE 74; RESP 16; TEMP 36.2; O2SAT 98; BMI 29.1
[2024-10-19] MEDS: LACTATED RINGERS 1,000 ML 150 ML IV CONT (08:20)
--- NOTE | 2024-10-19 08:50 | PM.IMHP ---
H&P: HPI History of Present Illness Date/Time: 10/19/24 08:50 Chief Complaint: history of colon polyps Narrative: this is a 69-year-old man who presents for colonoscopy. His last colonoscopy was 3 years ago and 3 polyps were removed at that time. He denies any hematochezia or melena. He denies family history of colon cancer. Review of Systems Review of Systems: All systems reviewed & are unremarkable except as noted in HPI and below Constitutional: Constitutional: Denies chills, Denies fever(s), Denies headache(s) and Denies weight loss Eyes: Eyes: Denies change in vision ENT: Denies dizziness, Denies headache(s), Denies neck mass and Denies throat swelling Cardiovascular: Cardiovascular: Denies chest pain, Denies lightheadedness and Denies dyspnea Respiratory: Respiratory: Denies cough, Denies dyspnea and Denies wheezing Gastrointestinal: Gastrointestinal: Denies abdominal pain, Denies change in bowel habits, Denies nausea and Denies vomiting Genitourinary: Genitourinary: Denies hematuria and Denies dysuria Musculoskeletal: Musculoskeletal: Reports as per HPI Integumentary/Breasts: Skin/Breast: Reports as per HPI Neurologic: Denies dizziness and Denies headache(s) Allergic/Immunologic: Allergic/Immunologic: Denies throat swelling and Denies wheezing [facility] Past Medical History Medical History (Updated 10/19/24 @ 08:50 by Ross An DO) Adrenal mass Surgical History Surgical History (Updated 07/02/24 @ 14:18 by Lisa Wheeler MA) H/O inguinal hernia repair 06/16/24 Laparoscopic bilateral inguinal hernia repair with mesh, da Wang assisted Dr. An Social History Social History Smoking status: Never smoker Alcohol intake: never Substance use: never Current Housing: Decline to Answer Concerned About Future Housing: Decline to Answer Difficulty Paying Gas/Electric Bills: Decline to Answer Difficulty Paying for Meds: Decline to Answer Currently Unemployed: Decline to Answer Education: Decline to Answer Difficulty w/ Childcare or Family Care: Decline to Answer Living arrangements: with family Spiritual care concerns: No Meds Home Medications and Allergies Home Medications ?Medication ?Instructions ?Recorded ?Confirmed ?Type No Home Medications 07/13/24 10/07/24 History Allergies Allergy/AdvReac Type Severity Reaction Status Date / Time No Known Allergies Allergy Verified 10/19/24 08:09 Vital Signs Vital Signs - 24 hr 10/19/24 08:11 Temperature 97.2 F L Pulse Rate 74 Respiratory Rate 16 Blood Pressure 139/84 Pulse Oximetry 98 Oxygen Delivery Room Air Exam Const: General: no acute distress and alert Orientation/consciousness: patient oriented x3 HENMT: Head: normocephalic and atraumatic Ears: hearing grossly normal bilaterally Face/Nose/Sinus: Normal nares present Mouth: Yes Normal oral and palatal mucosa present Eyes: Periorbital: periorbital findings normal Sclera: sclerae normal EOM: EOMs intact bilaterally Neck: Neck: normal visual inspection, no lymphadenopathy and trachea midline Chest: Chest palpation & inspection: normal inspection of the chest Resp: Effort & Inspection: normal respiratory effort Auscultation: clear to auscultation bilaterally Cardio: Jugular venous distension: no JVD Rate: regular rate Rhythm: regular rhythm Heart sounds: S1 normal heart sound present and S2 normal heart sound present Peripheral pulses: Peripheral pulses 2+ throughout GI: Inspection: normal to inspection GI Palp: Yes Soft to palpation, No Tenderness to palpation present (GI), No Guarding due to palpation present (GI) and No Rebound tenderness present Percussion: Yes normal to percussion Auscultation: normal bowel sounds : General: Yes no CVA tenderness Back/Spine/Pelvis: Back: no CVA tenderness Neuro: General: patient oriented x3, no focal motor deficits and CN's II-XI intact bilaterally Cognition (Neuro): normal cognition Speech: normal speech Motor exam (neuro): 5/5 motor strength present throughout Extrem: General: capillary refill normal and no clubbing, cyanosis or edema Assessment and Plan Assessment and plan (1) History of colon polyps: Code(s): Z86.0100 - Personal history of colon polyps, unspecified Status: Acute Assessment and Plan: I have recommended colonoscopy. I have discussed the procedure, risks, benefits, and alternatives. Questions were answered. Patient is agreeable to proceed.
--- NOTE | 2024-10-19 08:54 | WPDANESEPPF ---
Anes - Initial Pre Proc Eval Procedure: Operation Date: 10/19/24 09:30 Proposed Procedures p Screening Colonoscopy - Ross An DO Date/Time: 10/19/24 08:54 Surgeon: Ross An DO Pre Op Diagnosis: Hx of prior colon polyps Patient Data Age: 69 Gender: M Height: 1.8 m Weight: 94.8 kg Last Vital Signs Temp 97.2 F L 10/19/24 08:11 Pulse 74 10/19/24 08:11 Resp 16 10/19/24 08:11 BP 139/84 10/19/24 08:11 Pulse Ox 98 10/19/24 08:11 O2 Del Method Room Air 10/19/24 08:11 Allergies Allergy/AdvReac Type Severity Reaction Status Date / Time No Known Allergies Allergy Verified 10/19/24 08:09 Home Medications ?Medication ?Instructions ?Recorded ?Confirmed ?Type No Home Medications 07/13/24 10/07/24 History Patient hx anesthesia problems: none Family hx anesthesia problems: none Results Review: All pre-operative results and documents have been reviewed as part of the pre-operative evaluation. [facility] Past Medical History Medical History Adrenal mass Surgical History Surgical History H/O inguinal hernia repair 06/16/24 Laparoscopic bilateral inguinal hernia repair with mesh, da Wang assisted Dr. An Social History Social History Smoking status: Never smoker Alcohol intake: never Substance use: never Current Housing: Decline to Answer Concerned About Future Housing: Decline to Answer Difficulty Paying Gas/Electric Bills: Decline to Answer Difficulty Paying for Meds: Decline to Answer Currently Unemployed: Decline to Answer Education: Decline to Answer Difficulty w/ Childcare or Family Care: Decline to Answer Living arrangements: with family Spiritual care concerns: No Anes - Eval Final PreProcedure Day of Procedure 10/19/24 08:54 Patient weight: overweight Lungs: normal air movement Airway: Mallampati scale class II Neurological: alert and oriented Last oral intake: >/= 8 hours ASA classification: II Emergent: no Anesthetic plan: proceed Anesthesia type and monitoring: general GIVS and standard monitoring Results Review: All pre-operative results and documents have been reviewed as part of the pre-operative evaluation. 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 Informed Consent: The patient's anesthetic plan and its attendant risks and benefits were discussed with the patient/family/POA. Questions were solicited and answers provided to the satisfaction of the patient/family/POA.
[2024-10-19 09:14] VITALS: BP 128/82; PULSE 71; RESP 25; O2SAT 96
[2024-10-19 09:24] VITALS: BP 131/88; PULSE 73; RESP 20; O2SAT 96
[2024-10-19 09:34] VITALS: BP 123/84; PULSE 65; RESP 16; O2SAT 97
== END 2024-10-19 09:42 | disposition home or self-care (01) ==
PROVIDERS: PCP Internal Medicine; Visit Provider Surgery
PROC: 0DJD8ZZ Inspection of Lower Intestinal Tract, Via Natural or Artificial Opening Endoscopic (ICD-10-PCS; CPT 45378; principal; 2024-10-19 09:30)
DX: Z12.11 Encounter for screening for malignant neoplasm of colon (principal); D12.5 Benign neoplasm of sigmoid colon; Z98.890 Other specified postprocedural states
CPT/HCPCS: 45385; 88305; J2704; J7120